=== PATIENT | female | born 1985 | race Caucasian/White ===

== ENCOUNTER 2017-11-26 14:29 | Emergency (ER) | payer OTHER ==
[2017-11-26 14:51] VITALS: BP 118/77
--- NOTE | 2017-11-26 15:15 | ED Physician Documentation ---
PD HPI WOUND RECHECK - Stated complaint Stated Complaint: R BREST PX/REDNEES - Chief complaint Chief Complaint: Wound - Histroy obtained from History obtained from: Patient - History of Present Illness Location: Other (She has had pain from the right breast for a few days, lateral side with redness and now fevers and chills and aches today. She is breast- feeding a 2-month-old.) Review of Systems Constitutional: reports: Chills Respiratory: denies: Dyspnea GI: denies: Abdominal Pain, Nausea, Vomiting PD PAST MEDICAL HISTORY - Present Medications Home Medications: Ambulatory Orders Medication Instructions Recorded Confirmed Cephalexin [Keflex] 500 mg PO QID #40 capsule 11/26/17 - Allergies Allergies/Adverse Reactions: Allergies Allergy/AdvReac Type Severity Reaction Status Date / Time Penicillins Allergy Mild Rash Verified 11/26/17 14:51 PD ED PE NORMAL - Vitals Vital signs reviewed: Yes - General General: Alert and oriented X 3, No acute distress - Cardiac Cardiac: Other (Right breast exam done with Barbara JASMINEN, there is redness and slight tenderness around 10:00 but no palpable abscess or firm spots.) - Neuro Neuro: Alert and oriented X 3, Normal speech Results - Vitals Vitals: Vital Signs - 24 hr 11/26/17 14:48 Temperature 36.7 C Heart Rate 76 Respiratory 18 Rate Blood Pressure 118/77 O2 Saturation 98 Oxygen O2 Source Room air PD MEDICAL DECISION MAKING - Sepsis Event Vital Signs: Vital Signs - 24 hr 11/26/17 14:48 Temperature 36.7 C Heart Rate 76 Respiratory 18 Rate Blood Pressure 118/77 O2 Saturation 98 Oxygen O2 Source Room air Departure - Departure Disposition: 01 Home, Self Care Clinical Impression: Mastitis Condition: Good Record reviewed to determine appropriate education?: Yes Instructions: ED Breast Infec Prescriptions: Cephalexin [Keflex] 500 mg PO QID #40 capsule Comments: Call your doctor to arrange a follow-up appointment, make the next available appointment. In the interim, return anytime if worse or if new symptoms develop.
== END 2017-11-26 15:40 | disposition home or self-care (01) ==
LOC: ED 14:29
DX: N61.0 Mastitis without abscess (principal)
CPT/HCPCS: 99283